=== PATIENT | female | born 1955 | race African-American/Black ===

== ENCOUNTER 2016-09-04 09:34 | Emergency (ER) | payer OTHER ==
[~2016-09-04 09:34] MED LIST: ASAB PO; COZAAR100 MG PO; CRESTOR20 MG PO; CYMBALTA30 PO; DIABETIC FOOT CREAM TOP; GLUCOPHAGE1000 MG PO; HYGROTON 25 MG25 MG PO; LEVEMFLXPN SC; LOP50 PO; NEUR600 PO; NORCO1 TA1 PO; NOVOPEN SC; PROPYLTHIOUR50 MG OR; SPIRO25 PO; TRADJENTA5 MG PO; ZESTORETIC1 TA1 PO; ZOCOR20 PO
[2016-09-04 09:58] LABS: WBC (NOT ORDERED) (RFLEX) 0 (0-5)
[2016-09-04 09:58] LABS: BASOPHILS 0 %; EOSINOPHILS 0 %; HEMATOCRIT 36.4 % (36.0-48.0); HEMOGLOBIN 12.5 g/dL (12.0-16.0); LYMPHOCYTES 38.8 %; LYMPHOCYTES ABSOLUTE 1.45 10/3/uL (0.67-4.30); MEAN CORPUS HGB CONC 34.3 g/dL (32.0-36.0); MEAN CORPUSCULAR HEMOGLOB 28.4 pg (26.0-34.0); MEAN CORPUSCULAR VOLUME 82.7 fL (80-100); MEAN PLATELET VOLUME 10.5 fL (9.2-13.0); MONOCYTES 13.9 %; MONOCYTES ABSOLUTE 0.52 10/3/uL (0.21-1.20); NEUTROPHILS 47.3 %; NEUTROPHILS ABSOLUTE 1.77 10/3/uL (2.02-8.40)
[2016-09-04 09:59] LABS: ER CBC TAT 0 Hrs 05 Mins; MANUAL DIFF NO %; PLATELET COUNT 167 10/3/uL (150-400); WHITE BLOOD CELLS 3.7 10/3/uL (4.5-10.5)
[2016-09-04 10:09] LABS: ASCORBIC ACID (UR NOT ORDER) NEG (NEG); BILIRUBIN, URINE SMALL (NEG); ER URINALYSIS TAT 0 Hrs 13 Mins; KETONE, URINE TRACE MG/DL (NEG); LEUKOCYTE ESTERASE(NOT OR NEG (NEG); NITRITE (URINE) NEG (NEG)
[2016-09-04 10:21] LABS: INFLUENZA A SCREEN NEGATIVE (NEGATIVE); INFLUENZA B SCREEN NEGATIVE (NEGATIVE)
[2016-09-04 10:28] LABS: CHLORIDE, SERUM 101 MMOL/L (96-112); POTASSIUM, SERUM 3.1 MMOL/L (3.5-5.3); SODIUM, SERUM 138 MMOL/L (135-148)
[2016-09-04 10:47] LABS: A/G RATIO 0.9 (0.7-1.9); ALBUMIN 3.8 G/DL (3.5-5.0); ALKALINE PHOSPHATASE 150 U/L (45-117); CO2 (CARBON DIOXIDE) 23 MMOL/L (24-34); GLOBULIN 4.2 G/DL (2.5-4.1); SGOT(AST) 19 U/L (5-40); SGPT(ALT) 17 U/L (5-65)
[2016-09-04 10:48] LABS: BUN (BLOOD UREA NITROGEN) 17 MG/DL (6-23); CALCIUM, SERUM 8.8 MG/DL (8.5-10.4); CREATININE 1.25 MG/DL (0.55-1.02); GFR AFRICAN AMERICAN 55 ML/MIN (>=60); GFR NON AFRICAN AMERICAN 47 ML/MIN (>=60); GLUCOSE, SERUM 155 MG/DL (60-99); TOTAL BILIRUBIN 0.5 MG/DL (0-1.2)
== END 2016-09-04 13:03 | disposition home or self-care (01) ==
LOC: ER 09:34
PROVIDERS: Hospitalist
DX: E87.6 Hypokalemia (principal); R31.9 Hematuria, unspecified; R11.2 Nausea with vomiting, unspecified; N17.9 Acute kidney failure, unspecified; I10 Essential (primary) hypertension; E11.9 Type 2 diabetes mellitus without complications; Z86.73 Personal history of transient ischemic attack (TIA), and cerebral infarction without residual deficits; Z88.5 Allergy status to narcotic agent; Z79.4 Long term (current) use of insulin; Z79.82 Long term (current) use of aspirin
CPT/HCPCS: 71010; 74176; 80053; 81001; 85025; 87040; 87804; 96374; 96375; 99285; A9270-GY; J2405